=== PATIENT | female | born 1950 | race Hispanic/Latino ===

== ENCOUNTER 2020-01-21 14:05 | Outpatient (CLI) | payer MEDICARE, OTHER | END 2020-01-21 14:06 | disposition home or self-care (01) | LOC: SPVIMAG 14:05 | PROVIDERS: ATTEND Surgery | DX: C50.412 Malignant neoplasm of upper-outer quadrant of left female breast (principal) | CPT/HCPCS: A9575; C8908; 77049 ==

== ENCOUNTER 2020-02-04 13:16 | Outpatient (CLI) | payer MEDICARE, OTHER ==
--- NOTE | 2020-02-04 14:40 | Ultrasound Report ---
ULTRASOUND BREAST LEFT LIMITED, 02/04/2020 CLINICAL INFORMATION / INDICATION: MALIGNANT NEOPLASM OF UPPER OUTER QUAD OF LT BREAST. On recent agus ast MRI, questionable left axillary adenopathy was described. TECHNIQUE: Targeted ultrasound evaluation was performed of the area of interest. The focus of the ajay luation was the left axilla COMPARISON: Recent MRI, 01/21/2020 FINDINGS: Sonographic evaluation of the left axilla shows cluster of lymph nodes in the axilla. The largest lym ph node, which measures approximately 2.8 cm in length demonstrated borderline cortical thickening of 3-4 mm. Due to this finding, we proceeded with axillary lymph node biopsy. IMPRESSION: Borderline left axillary adenopathy. Due to the patient's history of left breast cancer, we decided to proceed with left axillary lymph node biopsy. Follow up recommendation: Ultrasound-guided biopsy BI-RADS Category 4: Suspicious for Malignancy. ULTRASOUND GUIDED left axillary BIOPSY, 02/04/2020 CLINICAL INFORMATION / INDICATION: MALIGNANT NEOPLASM OF UPPER OUTER QUAD OF LT BREAST. COMPARISON: Axillary ultrasound performed earlier today as well as recent bilateral breast MRI exam PROCEDURE: Risks, benefits, and indications to the procedure were discussed with the patient in detail, includin g bleeding, infection, hematoma formation, and inadequate tissue sampling. The patient agreed to proc eed with both verbal and written consent. A timeout procedure was performed with two patient identifi ers. The breast was prepped and draped in the usual sterile fashion. Lidocaine 1% with and without epineph rine were used for local anesthesia. Under direct ultrasound guidance, multiple core samples were obt ained of the questionable abnormal lymph node in the left axilla. A biopsy marker was then placed. B iopsy device was removed and hemostasis achieved with manual pressure. A sterile dressing was applied to the skin. The patient tolerated the procedure without difficulty. No complications were encountered. Postbiopsy instructions were discussed with the patient and given in writing. Specimens were sent to pathology. IMPRESSION: 1. Technically successful ultrasound guided left axillary lymph node biopsy. Biopsy results are pending and will be reported in an addendum. A normal or "negative" report should not preclude biopsy or follow-up of a clinically suspicious find ing. Signer Name: Araceli Nicholas MD Signed: 02/04/2020 2:35 PM Workstation Name: [id number]
== END 2020-02-04 13:17 | disposition home or self-care (01) ==
LOC: SPVWC 13:16
PROVIDERS: ATTEND Surgery
DX: R59.1 Generalized enlarged lymph nodes (principal); C50.412 Malignant neoplasm of upper-outer quadrant of left female breast
CPT/HCPCS: 38505; 76942; 88305

== ENCOUNTER 2020-03-24 08:26 | Observation (INO) | payer MEDICARE, OTHER ==
--- NOTE | 2020-03-17 10:28 | Anesthesia Consultation ---
Anesthesia Consult and Med Hx Date of service: 03/24/20 - Airway Anesthetic Teeth Evaluation: Good, Crowns ROM Head & Neck: Adequate Mental/Hyoid Distance: Adequate Mallampati Class: Class II Intubation Access Assessment: Good - Pre-Operative Health Status ASA Pre-Surgery Classification: ASA2 Proposed Anesthetic Plan: General Nerve Block: PECS/ES - Pulmonary Hx Smoking: No Hx Respiratory Symptoms: No (+2FS) - Cardiovascular System Hx Hypertension: No - Central Nervous System Hx Psychiatric Problems: No - Gastrointestinal Hx Gastroesophageal Reflux Disease: No - Endocrine Hx Renal Disease: No Hx Liver Disease: No Hx Non-Insulin Dependent Diabetes: No Hx Thyroid Disease: No - Other Systems Hx Alcohol Use: Yes (Occas) Hx Cancer: Yes - Additional Comments Anesthesia Medical History Comments: Reported medical clearance from [id number]
[~2020-03-24 08:26] MED LIST: ACETAMINOPHEN 325 MG TAB PO SCH; CELECOXIB 200 MG CAP PO NR; GABAPENTIN 500 MG/10 ML ORAL LIQD PO NR; LACTATED RINGERS 1,000 ML IV SCH; MAGNESIUM OXIDE 400 MG TAB PO SCH; MIDAZOLAM 2 MG/2 ML INJ IV NR; ceFAZolin/Water 2 GM/20 ML 2 GM/20 ML SYRINGE IV NR; fentaNYL 100 MCG/2 ML INJ IV SCH
[2020-03-24] MEDS ORDERED: BUPIVACAINE-EPINEPHRINE/PF 0.5%-1:200,000 (30 ML) VIAL INFILTRATI ONE (09:29)
[2020-03-24] MEDS ORDERED: dexAMETHasone 4 MG/ML VIAL ONE (09:29)
[2020-03-24] MEDS ORDERED: ONDANSETRON 4 MG/2 ML INJ IV PRN ×2 (09:36→16:00)
[2020-03-24] MEDS ORDERED: fentaNYL 100 MCG/2 ML INJ IV PRN (09:36)
--- NOTE | 2020-03-24 09:36 | Anesthesia Day of Surgery ---
Anesthesia Day of Surgery - Day of Surgery Patient Examined: Yes Patient H&P Reviewed: Yes Patient is NPO: Yes
[2020-03-24] MEDS ORDERED: SUCCINYLCHOLINE CHLORIDE 200 MG/10 ML INJ MDV ONE (11:11)
[2020-03-24] MEDS ORDERED: fentaNYL 100 MCG/2 ML INJ ONE (11:11)
[2020-03-24] MEDS ORDERED: GLYCOPYRROLATE 0.4 MG/2 ML INJ ONE (11:11)
[2020-03-24] MEDS ORDERED: ROCURONIUM 50 MG/5 ML INJ IV ONE (11:11)
[2020-03-24] MEDS ORDERED: NEOSTIGMINE 10MG/10 ML INJ MDV ONE (11:11)
[2020-03-24] MEDS ORDERED: PHENYLEPHRINE/NS 1,000 MCG/10 ML SYRINGE (OR USE) IV ONE (11:11)
[2020-03-24] MEDS ORDERED: dexAMETHasone 20 MG/5 ML VIAL ONE (11:11)
[2020-03-24] MEDS ORDERED: ONDANSETRON 4 MG/2 ML INJ ONE (11:11)
[2020-03-24] MEDS ORDERED: LIDOCAINE MPF (2%) 20 MG/1 ML VIAL 5 ML ONE (11:11)
[2020-03-24] MEDS ORDERED: propofoL 200 MG/20 ML VIAL IV ONE (11:12)
[2020-03-24] MEDS ORDERED: GENTAMICIN 40 MG/ML VIAL 2 ML ONE (12:05)
[2020-03-24] MEDS ORDERED: ceFAZolin 1 GM VIAL ONE (12:05)
[2020-03-24] MEDS ORDERED: BACITRACIN 50,000 UNIT VIAL ONE (12:06)
[2020-03-24] MEDS ORDERED: BACITRACIN 50,000 UNIT VIAL IR ONE (12:20)
[2020-03-24] MEDS ORDERED: WATER FOR IRRIG STERILE 1,500 ML BOTTLE IR ONE (12:20)
[2020-03-24] MEDS ORDERED: GENTAMICIN 40 MG/ML VIAL 2 ML IV ONE (12:21)
[2020-03-24] MEDS ORDERED: ceFAZolin 1 GM VIAL IV ONE (12:21)
[2020-03-24] MEDS ORDERED: METHYLENE BLUE 50 MG/10 ML AMP ONE (13:49)
[2020-03-24] MEDS ORDERED: SODIUM CHLORIDE P/F VIAL 10 ML 20 ML ONE (13:49)
[2020-03-24] MEDS ORDERED: SODIUM CHLORIDE 0.45% 1000 ML 1,000 ML IV ONE (13:49)
--- NOTE | 2020-03-24 15:16 | Short Stay Summary ---
Short Stay Documentation Date of service: 03/24/20 - History H&P: obtained from office - Allergies and Medications Current Medications: Allergies No Known Allergies Allergy (Unverified 03/12/20 11:27) Home Medications Medication Instructions Recorded Confirmed Last Taken Type Multivitamin [Daily Multiple 1 each PO DAILY 03/12/20 03/24/20 03/16/20 08:00 History Vitamin] Rosuvastatin (Nf) [Crestor] 5 mg PO QHS 03/12/20 03/24/20 03/22/20 08:00 History Active Medications Acetaminophen (Acetaminophen 325 Mg Tab) 650 mg PO ONCE ROHITH Stop: 03/24/20 21:00 Last Admin: 03/24/20 09:15 Dose: 650 mg Documented by: Acetaminophen (Acetaminophen 325 Mg Tab) 650 mg PO Q6H PRN PRN Reason: Pain MILD(1-3)/Fever >100.5/NORMAN Celecoxib (Celecoxib 200 Mg Cap) 200 mg PO PREOP NR Stop: 03/24/20 21:00 Last Admin: 03/24/20 09:15 Dose: 200 mg Documented by: Diphenhydramine HCl (Diphenhydramine 25 Mg Cap) 25 mg PO Q8H PRN PRN Reason: Itching Docusate Sodium (Docusate Sodium 100 Mg Cap) 100 mg PO BID ROHITH Fentanyl (Fentanyl 100 Mcg/2 Ml Inj) 100 mcg IV ONCE ROHITH Stop: 03/24/20 21:00 Last Admin: 03/24/20 10:19 Dose: 100 mcg Documented by: Fentanyl (Fentanyl 100 Mcg/2 Ml Inj) 50 mcg IV Q5MIN PRN PRN Reason: Pain , Severe (7-10) Stop: 03/24/20 23:00 Gabapentin (Gabapentin 500 Mg/10 Ml Oral Liqd) 150 mg PO PREOP NR Stop: 03/24/20 21:00 Last Admin: 03/24/20 09:15 Dose: 150 mg Documented by: Hydromorphone HCl (Hydromorphone 2 Mg Tab) 2 mg PO Q6H PRN PRN Reason: Pain , Severe (7-10) Cefazolin Sodium (Ancef/Sterile Water 2 Gm/20 Ml) 2 gm in 20 mls @ 80 mls/hr IV PREOP NR; Protocol Stop: 03/24/20 20:00 Lactated Ringer's (Lactated Ringers) 1,000 mls @ 125 mls/hr IV DIRECT ROHITH Last Admin: 03/24/20 09:20 Dose: 125 mls/hr Documented by: Lactated Ringer's (Lactated Ringers) 1,000 mls @ 125 mls/hr IV DIRECT ROHITH Magnesium Oxide (Magnesium Oxide 400 Mg Tab) 400 mg PO ONCE ROHITH Stop: 03/24/20 21:00 Last Admin: 03/24/20 09:15 Dose: 400 mg Documented by: Metoclopramide HCl (Metoclopramide 10 Mg Tab) 10 mg PO Q6H PRN PRN Reason: Nausea And Vomiting Midazolam HCl (Midazolam 2 Mg/2 Ml Inj) 2 mg IV PREOP NR Stop: 03/24/20 23:59 Last Admin: 03/24/20 10:19 Dose: 2 mg Documented by: Morphine Sulfate (Morphine 2 Mg/1 Ml Inj) 2 mg IV Q4H PRN PRN Reason: Pain, Moderate (4-6) Ondansetron HCl (Ondansetron 4 Mg/2 Ml Inj) 4 mg IV Q8H PRN PRN Reason: N/V unrelieved by Reglan Oxycodone/Acetaminophen (Oxycodone /Acetaminophen 5-325mg Tab) 1 tab PO Q6H PRN PRN Reason: Pain, Moderate (4-6) Sodium Chloride (Sodium Chloride 0.9% 10 Ml Flush Syringe) 10 ml IV PRN PRN PRN Reason: LINE FLUSH - Brief post op/procedure progress note Date of procedure: 03/24/20 Pre-op diagnosis: Left breast cancer upper outer quadrant Post-op diagnosis: same Procedure: Left modified radical mastectomy Anesthesia: GETA Findings: Left mastectomy with 2 clips present; left axillary lymph node dissection with reactive tissue and palpable axillary lymph node Surgeon: ALBARO VARMA Estimated blood loss: 50-100ml Pathology: list (left modified radical mastectomy) Specimen disposition: to lab Condition: stable - Disposition Condition at discharge: Good Disposition: DC/TX-02 SHRT-TRM GEN HOSP IP Short Stay Discharge Plan Activity: other (no heavy lifting) Diet: regular Wound: keep clean and dry Follow up with: ALBARO VARMA MD [Staff Physician] - 7 Days DIRK MEYER JR, MD [Staff Physician] - 7 Days
--- NOTE | 2020-03-24 15:33 | Operative Report ---
Operative Report Operative Report: Operative Report: Date of Service: March 24, 2020 Preoperative diagnosis: Multicentric left breast cancer of the upper outer quadrant Postoperative diagnosis: Same Procedure: Left total mastectomy with ALND-left modified radical mastectomy Surgeon: Lisy Hickman M.D. Window Trimmer Apprentice: Lonny Curry M.D. Anesthesia: Gen. Findings: Left breast clips x2 present within left total mastectomy; left axillary lymph node dissection with bulky left axillary lymphadenpathy Complications: None Drains: PATEL drains placed by plastic surgery Estimated blood loss: 100 cc Disposition: Plastic surgery proceeded with left tissue communications tower climber placement Indications for operative procedure: This is a 69-year-old lady with stage II left breast cancer of the upper outer quadrant, [id number] ER/MD positive. Recommendations were to proceed with an ALND given positive axillary swati metastasis; given high ER/MD positivity recommendations were to proceed with an ALND given probable poor response to neoadjuvant chemotherapy. She has met with radiation oncology and medical oncology and understands the role of possible adjuvant chemoradiation therapy pending pathology. Patient with multicentric left breast cancer and recommendations were to proceed with a left total mastectomy, patient wished to proceed with a left mastectomy as well. She wished to proceed with immediate left tissue communications tower climber placement. She wished to proceed with the above procedure. Procedure in detail: The patient was taken to the operating room and was placed supine. Gen. anesthesia was administered. Patient with known malignancy left breast 2:00 and 3:00 positions. Bilateral chest and axillas were prepped and draped in the normal sterile operative fashion. Timeout was performed. Typical mastectomy incision markings were made and encompassing known area of malignancy. Ultrasound used as well to anny area of known left axillary swati metastasis and location of known malignancy. Attention was taken towards the left breast. Skin markings were made to include the area of known cancer. A skin incision was made with a 10 blade knife and dissection taken down to the subcutaneous tissues. First began raising of the superior flap to the level of the clavicle superiorly and posteriorly to the pectoralis muscle. Followed by raising of the medial flap to the level of the sternum and posteriorly to the pectoralis muscle. Followed by raising of the lateral flap to the level of the latissimus dorsi muscle and taken down posteriorly. Then proceeded with raising of the inferior flap to the level of the inframammary fold taken posterior to the pectoralis muscle. The mastectomy/breast was removed from the pectoralis muscle without incident. The specimen was appropriately marked and sent to radiology with findings of breast clips x2 present and sent to pathology. Attention was then taken towards the left axilla. First began opening of the axillary fascia. The lattismus dorsi muscle was identified and followed superiorly. Then proceeded with identification of the axillary vein followed by identification of the thoracodorsal bundle and long thoracic nerve. Axillary lymph nodes were then removed from the above boundaries with the aid of the bovie cautery in a sweeping-like motion and then sent to pathology. Axillary lymph nodes from level I and II were removed. Both nerves were identified and unharmed. Bulky axillary lymphadenopathy was noted. Hemostasis was noted. The chest wall was irrigated and suctioned. Hemostasis was obtained. Plastic surgery then proceeded with placement of left tissue communications tower climber.
[2020-03-24] MEDS ORDERED: MORPHINE 2 MG/1 ML INJ IV PRN (16:00)
[2020-03-24] MEDS ORDERED: ACETAMINOPHEN 325 MG TAB PO PRN (16:00)
[2020-03-24] MEDS ORDERED: LACTATED RINGERS 1,000 ML IV SCH (16:00)
[2020-03-24] MEDS ORDERED: METOCLOPRAMIDE 10 MG TAB PO PRN (16:00)
[2020-03-24] MEDS ORDERED: diphenhydrAMINE 25 MG CAP PO PRN (16:00)
[2020-03-24] MEDS ORDERED: LACTATED RINGERS 1,000 ML ONE (16:18)
--- NOTE | 2020-03-24 16:44 | Operative Report ---
PREOPERATIVE DIAGNOSIS: Left breast cancer. POSTOPERATIVE DIAGNOSIS: Left breast cancer. PROCEDURES: 1. Immediate left breast reconstruction with Allergan Natrelle 133MV 400 mL tissue center receptionist. 2. Placement of MTF FlexHD acellular dermal matrix. SURGEON: Dr. Miles Ayala. ASSEMBLY ASSOCIATE: Dr. Curry. ANESTHESIA: General endotracheal tube anesthesia. DRAINS: PATEL x 3. SPECIMENS: None. COMPLICATIONS: None. ESTIMATED BLOOD LOSS: 25 mL. INDICATIONS: The patient is a 69-year-old woman who presents with left-sided breast cancer, wishing to pursue bilateral breast reconstruction. After discussing options, we decided to proceed with a left-sided tissue center receptionist and placement of ADM. She understands the staged nature of the procedure and the need for subsequent exchange of the tissue center receptionist for an implant. Ancillary procedures, such as nipple flap reconstruction and/or nipple areolar tattooing was also discussed. Nature of the surgery, technical aspects, typical recovery period, and potential risks were discussed fully including but not limited to postop bleeding, infection, pronounced scarring, hematoma or seroma formation, areas of paresthesias or numbness or pain, which may be permanent, asymmetry (expected), capsular contracture, implant leak, rupture, failure, exposure, need for revision or removal, delayed healing, and need for additional surgery. DESCRIPTION OF PROCEDURE: The patient was already anesthetized, prepped and draped. Dr. Hickman had just completed the left-sided mastectomy and axillary node dissection. The flaps were inspected and deemed of adequate thickness and viability to proceed. The inferior border of the pectoralis major muscle was divided with an electrocautery device. Then, a subpectoral pocket developed under direct vision. Next, a triply washed segment of MTF FlexHD medium thickness contoured perforated 11 x 20 cm sheet of ADM was placed and trimmed to the appropriate size, oriented and sewn to the inframammary fold portion of the chest wall with interrupted 0 PDS sutures. Along the superior edge of the ADM, a series of 0 Vicryl interrupted sutures were placed approximating it to the inferior edge of the pectoralis major muscle. The pocket was then irrigated with copious amounts of triple antibiotic solution. The axillary compartment was then compartmentalized from the breast compartment with placement of a series of 0 Vicryl sutures laterally. In the process, a 7 mm flat PATLE drain was placed into the axillary dissection plane exiting through a separate inferolateral stab incision and sewn in place with 2-0 silk. A deep #19 Tony drain was then placed below the ADM and pectoralis major muscle, and a superficial 7 mm PATEL drain was placed superficial to the ADM both exiting through separate inferolateral stab incisions and sewn in place with 2-0 silk. An Nexgencean Natrelle 133MV 400 mL tissue center receptionist was deflated of all air and then placed beneath the ADM and pectoralis major muscle, completely. The blue tabs were sewn down to the chest wall. The skin flap edges were then trimmed to healthy bleeding skin edges and closure was facilitated with a running 2-0 Vicryl suture at the level of the subcutaneous tissue, 3-0 Monocryl at the level of the deep dermis in an interrupted fashion, and running 4-0 Monocryl suture and then Dermabond skin glue. Utilizing closed sterile technique, 120 mL of sterile saline was instilled into the tissue center receptionist. There was no undue tension on the skin flaps, which appeared healthy and viable at the termination of the case. The patient tolerated the procedure well and was extubated and transferred to the recovery area in stable condition. JOB# [id number] /ANGELA
--- NOTE | 2020-03-24 16:46 | Mammography Report ---
BREAST SPECIMEN RADIOGRAPH HISTORY: Left breast surgery FINDINGS/IMPRESSION: The submitted radiograph or radiographs demonstrate(s) the presence of 2 biopsy clips which are cente red in an area of an irregular soft tissue density with spiculation. No localization wire is present. Signer Name: Araceli Nicholas MD Signed: 03/24/2020 4:42 PM Workstation Name: [id number]
[2020-03-24] MEDS ORDERED: MEPERIDINE 25 MG/1 ML INJ IV PRN (17:00)
[2020-03-24] MEDS ORDERED: MEPERIDINE 25 MG/1 ML INJ ONE (17:06)
--- NOTE | 2020-03-24 17:27 | Post Anesthesia Evaluation ---
- Post Anesthesia Evaluation Patient Participated: Yes Airway Patent: Yes Stable Respiratory Function: Yes Nausea/Vomiting: No Temp > 96.8F: Yes Pain Manageable: Yes Adequeate Hydration: Yes Anesthesia Complications: No Block Receding Appropriately: Yes (block for post op analgesia)
[2020-03-24] MEDS: HYDROmorphone 2 MG TAB PO PRN (21:03)
[2020-03-24] MEDS ORDERED: DOCUSATE SODIUM 100 MG CAP PO SCH (22:00)
--- NOTE | 2020-03-24 22:54 | Operative Report ---
PREOPERATIVE DIAGNOSIS: Left breast cancer. POSTOPERATIVE DIAGNOSIS: Left breast cancer. PROCEDURES: 1. Immediate left breast reconstruction with an Allergan Natrelle 400 mL tissue prosthetics lab technician. 2. Placement of MTF FlexHD perforated contour 11 x 20 cm acellular dermal matrix. SURGEON: Dr. Miles Ayala. EX ASSISTANT/PROGRAM DIRECTOR: Dr. Curry. BLOOD LOSS: 25 mL. DRAINS: PATEL x 3. SPECIMENS: None. COMPLICATIONS: None. INDICATIONS: The patient is a 69-year-old woman who presents with known left-sided breast cancer. Dr. Hickman had performed a left breast axillary node dissection and I discussed with the patient an immediate reconstructive effort as an option including the use of tissue expanders and acellular dermal matrix. Other options were discussed and this was deemed the most reasonable one for her needs. Nature of the surgery, technical aspects, typical recovery period and potential risks involved were discussed fully including but not limited to postoperative bleeding, infection, pronounced scarring, hematoma, seroma formation, areas of paresthesias or numbness may be permanent, postoperative pain, asymmetry (expected), failed to achieve our anticipated goals, capsular contracture, delayed healing, implant exposure, need for removal or replacement or subsequent surgery or revision. She understands the staged nature of the procedure and the need for subsequent replacement of the tissue prosthetics lab technician for an implant as well as ancillary potential procedures such as nipple reconstruction and/or tattooing. DESCRIPTION OF PROCEDURE: The patient was already anesthetized, prepped and draped. Dr. Hickman completed her mastectomy and left-sided axillary node dissection. The flaps were inspected and deemed of thickness and viability to proceed. A subpectoral pocket was developed under direct vision by incising the inferior border of the pectoralis major muscle and developing a tissue plane along the chest superiorly. The axillary dissection pocket was closed off with several interrupted 0 Vicryl sutures laterally to compartmentalize the breast compartment from the axillary compartment. In the process, a 7 mm flat PATEL drain was placed into the axillary space exiting through a separate inferior lateral stab incision and sewn in place with a 2-0 silk stitch. Next, a triply-washed antibiotic solution, a segment of MTF FlexHD medium contoured thickness perforated 11 x 20 cm ADM was trimmed in the appropriate size and ____ after orienting the material. It was sewn to the inferior border of the chest wall at the inframammary fold with interrupted 0 PDS. The superior edge was sewn to the inferior edge of the pectoralis major muscle with a series of interrupted 0 Vicryl sutures. A deflated and antibiotic washed 400 mL Intellioan Natrelle 133MV tissue prosthetics lab technician was deflated completely of air ____ into the subpectoral and sub-ADM pocket. The blue tabs were sewn to the anterior chest wall with interrupted 0 Vicryl sutures. A deep #19 Tony drain was placed into the subpectoral pocket exiting through separate inferolateral incision likewise and sewn in place with 2-0 silk suture. A superficial 7 mm flat PATEL drain was placed above the ADM at the inframammary fold and likewise sewn in with 2-0 silk at the inferolateral aspect of the chest wall. Pocket was irrigated with copious amounts of triple antibiotic solution containing Ancef, gentamicin and bacitracin. Next, closure was facilitated with a running 2-0 Vicryl for subcutaneous tissue plane. The skin flap edges were trimmed back to healthy bleeding skin edges and sewn together with 3-0 Monocryl at the level of the deep dermis in an interrupted fashion. The skin was reapproximated at the subcuticular tissue plane with a running 4-0 Monocryl stitch and then Dermabond skin glue was placed. ____ were placed over the 3 exiting PATEL sites utilizing a closed sterile technique, 120 mL of saline solution was instilled into the tissue prosthetics lab technician. There was no undue tension on the skin flaps. JOB# [id number] /ANGELA
[2020-03-25] MEDS: oxyCODONE /ACETAMINOPHEN 5-325MG TAB PO PRN ×2 (00:30→07:52)
[2020-03-25] MEDS: HYDROmorphone 2 MG TAB PO PRN (05:44)
[2020-03-25 07:58] VITALS: BP 109/57
--- NOTE | 2020-03-25 08:20 | Progress Note ---
Assessment and Plan This is a 69 year old lady POD#1 left modified radical mastectomy and left tissue stock feeder placement for Stage II left breast cancer. 1. No acute events overnight. 2. Left chest incision healing well, skin well perfused. 3. PATEL drain education. 4. OOB hallway. 5. D/C planning today. Subjective Date of service: 03/25/20 Principal diagnosis: Stage II left breast cancer upper outer quadrant Interval history: This is a 69 year old lady POD#1 left modified radical mastectomy and left tissue stock feeder placement for Stage II left breast cancer Objective - Constitutional Vitals: Vital Signs - 12hr 03/24/20 03/24/20 03/25/20 20:20 22:03 00:46 Temperature 98.4 F 98.6 F Pulse Rate 95 H 84 Respiratory 20 20 18 Rate Blood Pressure 120/69 110/59 O2 Sat by Pulse 97 94 Oximetry 03/25/20 03/25/20 03/25/20 05:26 07:23 07:52 Temperature 98.3 F 98.1 F Pulse Rate 75 76 Respiratory 14 16 18 Rate Blood Pressure 102/52 109/57 O2 Sat by Pulse 96 94 Oximetry General appearance: Present: no acute distress - EENT Eyes: PERRL, EOM intact ENT: hearing intact, clear oral mucosa, dentition normal Ears: bilateral: normal - Neck Neck: supple - Respiratory Respiratory effort: normal - Breasts Breasts: other (left chest incision c/d/i; no hematoma, skin well perfused; PATEL drains with appr output) - Cardiovascular Rhythm: regular Extremities: no ischemia, pulses intact, pulses symmetrical, No edema, normal temperature, normal color, Full ROM - Gastrointestinal General gastrointestinal: Present: soft, non-tender, non-distended - Genitourinary Female genitourinary: deferred - Integumentary Integumentary: clear, warm, dry - Musculoskeletal Musculoskeletal: strength equal bilaterally - Neurologic Neurologic: CNII-XII intact, moves all extremities - Psychiatric Psychiatric: appropriate mood/affect, intact judgment & insight, memory intact, cooperative Medications & Allergies - Medications Allergies/Adverse Reactions: Allergies No Known Allergies Allergy (Unverified 03/12/20 11:27) Home Medications: Home Medications Medication Instructions Recorded Confirmed Last Taken Type Multivitamin [Daily Multiple 1 each PO DAILY 03/12/20 03/24/20 03/16/20 08:00 History Vitamin] Rosuvastatin (Nf) [Crestor] 5 mg PO QHS 03/12/20 03/24/20 03/22/20 08:00 History Active Medications: Generic Name Dose Route Start Last Admin Trade Name Freq PRN Reason Stop Dose Admin Acetaminophen 650 mg 03/24/20 16:00 Acetaminophen 325 Mg Tab PO Q6H PRN Pain MILD(1-3)/Fever >100.5/NORMAN Cyclobenzaprine HCl 5 mg 03/25/20 08:16 Cyclobenzaprine 10 Mg Tab PO Q8H PRN Muscle Spasm Diphenhydramine HCl 25 mg 03/24/20 16:00 Diphenhydramine 25 Mg Cap PO Q8H PRN Itching Docusate Sodium 100 mg 03/24/20 22:00 03/24/20 21:03 Docusate Sodium 100 Mg Cap PO 100 mg BID ROHITH Administration Hydromorphone HCl 2 mg 03/24/20 16:00 03/25/20 05:44 Hydromorphone 2 Mg Tab PO 2 mg Q6H PRN Administration Pain , Severe (7-10) Lactated Ringer's 1,000 mls @ 125 mls/hr 03/24/20 16:00 Lactated Ringers IV DIRECT ROHITH Metoclopramide HCl 10 mg 03/24/20 16:00 Metoclopramide 10 Mg Tab PO Q6H PRN Nausea And Vomiting Morphine Sulfate 2 mg 03/24/20 16:00 Morphine 2 Mg/1 Ml Inj IV Q4H PRN Pain, Moderate (4-6) Ondansetron HCl 4 mg 03/24/20 16:00 Ondansetron 4 Mg/2 Ml Inj IV Q8H PRN Nausea And Vomiting Oxycodone/Acetaminophen 1 tab 03/24/20 16:00 03/25/20 07:52 Oxycodone /Acetaminophen 5-325mg Tab PO 1 tab Q6H PRN Administration Pain, Moderate (4-6) Sodium Chloride 10 ml 03/24/20 16:00 Sodium Chloride 0.9% 10 Ml Flush Syringe IV PRN PRN LINE FLUSH
[2020-03-25] MEDS ORDERED: CYCLOBENZAPRINE 10 MG TAB PO PRN (09:00)
== END 2020-03-25 11:07 | disposition home or self-care (01) ==
LOC: OR 08:26 → OB 15:08
PROVIDERS: ADMIT Surgery; ATTEND Surgery
DX: C50.412 Malignant neoplasm of upper-outer quadrant of left female breast (principal); Z20.822 Contact with and (suspected) exposure to COVID-19
CPT/HCPCS: 15777; 19307; 19357; 64450; 76098; 88307; 88309; 96374; C1789; G0378; J0330; J0690; J1100; J1580; J2175; J2250; J2370; J2704; J2710; J3010; J7030; J7120; Q4128; Q9968; U0003; J2405

== ENCOUNTER 2020-05-26 11:20 | Observation (INO) | payer MEDICARE, OTHER ==
[~2020-05-26 11:20] MED LIST changes: -ACETAMINOPHEN 325 MG TAB PO SCH; -CELECOXIB 200 MG CAP PO NR; -GABAPENTIN 500 MG/10 ML ORAL LIQD PO NR; -LACTATED RINGERS 1,000 ML IV SCH; -MAGNESIUM OXIDE 400 MG TAB PO SCH; -MIDAZOLAM 2 MG/2 ML INJ IV NR; -fentaNYL 100 MCG/2 ML INJ IV SCH
--- NOTE | 2020-05-26 13:10 | Anesthesia Day of Surgery ---
Anesthesia Day of Surgery - Day of Surgery Patient Examined: Yes Patient H&P Reviewed: Yes Patient is NPO: Yes
[2020-05-26] MEDS ORDERED: MAGNESIUM OXIDE 400 MG TAB PO NR (13:11)
[2020-05-26] MEDS ORDERED: fentaNYL 100 MCG/2 ML INJ IV ONE (13:11)
[2020-05-26] MEDS ORDERED: ONDANSETRON 4 MG/2 ML INJ IV PRN ×2 (13:11→17:15)
[2020-05-26] MEDS ORDERED: ACETAMINOPHEN 325 MG TAB PO NR (13:11)
[2020-05-26] MEDS ORDERED: HYDROmorphone 1 MG/1 ML INJ IV PRN ×2 (13:11)
--- NOTE | 2020-05-26 13:11 | Anesthesia Consultation ---
Anesthesia Consult and Med Hx - Airway Anesthetic Teeth Evaluation: Good, Crowns (Implants) ROM Head & Neck: Adequate Mental/Hyoid Distance: Adequate Mallampati Class: Class II Intubation Access Assessment: Good - Pre-Operative Health Status ASA Pre-Surgery Classification: ASA2 Proposed Anesthetic Plan: General Nerve Block: ES - Pulmonary Hx Respiratory Symptoms: No (+2FS) - Central Nervous System Hx Psychiatric Problems: No - Gastrointestinal Hx Gastroesophageal Reflux Disease: No - Endocrine Hx Non-Insulin Dependent Diabetes: No Hx Thyroid Disease: No - Other Systems Hx Alcohol Use: Yes (Occas) Hx Cancer: Yes - Additional Comments Anesthesia Medical History Comments: Was here [id number]
[2020-05-26] MEDS ORDERED: BUPIVACAINE/PF (0.25%) 2.5 MG/ML 30 ML VIAL INFILTRATI ONE ×2 (13:37)
[2020-05-26] MEDS ORDERED: dexAMETHasone 4 MG/ML VIAL ONE (13:38)
[2020-05-26] MEDS: LACTATED RINGERS 1,000 ML IV SCH ×2 (13:40→21:46)
[2020-05-26] MEDS ORDERED: MIDAZOLAM 2 MG/2 ML INJ IV NR (14:00)
[2020-05-26] MEDS ORDERED: CELECOXIB 200 MG CAP PO NR (14:00)
[2020-05-26] MEDS ORDERED: propofoL 200 MG/20 ML VIAL IV ONE (14:05)
[2020-05-26] MEDS ORDERED: LIDOCAINE MPF (2%) 20 MG/1 ML VIAL 5 ML ONE (14:05)
[2020-05-26] MEDS ORDERED: HYDROmorphone 1 MG/1 ML INJ ONE (14:05)
[2020-05-26] MEDS ORDERED: ROCURONIUM 50 MG/5 ML INJ IV ONE (14:05)
[2020-05-26] MEDS ORDERED: GENTAMICIN 40 MG/ML VIAL 2 ML ONE (14:08)
[2020-05-26] MEDS ORDERED: ceFAZolin 1 GM VIAL ONE (14:08)
[2020-05-26] MEDS ORDERED: BACITRACIN 50,000 UNIT VIAL ONE (14:08)
[2020-05-26] MEDS ORDERED: SODIUM CHLORIDE P/F VIAL 10 ML 0 ML ONE (14:09)
[2020-05-26] MEDS ORDERED: PHENYLEPHRINE/NS 1,000 MCG/10 ML SYRINGE (OR USE) IV ONE (14:48)
[2020-05-26] MEDS ORDERED: LIDOCAINE 1%/EPINEPHRINE 1:100,000 VIAL (20 ML) INFILTRATI ONE ×2 (15:08→15:27)
[2020-05-26] MEDS ORDERED: WATER FOR IRRIG STERILE 1,500 ML BOTTLE IR ONE (15:22)
[2020-05-26] MEDS ORDERED: LACTATED RINGERS 1,000 ML ONE (16:04)
[2020-05-26] MEDS ORDERED: dexAMETHasone 20 MG/5 ML VIAL ONE (17:04)
[2020-05-26] MEDS ORDERED: ONDANSETRON 4 MG/2 ML INJ ONE (17:05)
[2020-05-26] MEDS ORDERED: NEOSTIGMINE 10MG/10 ML INJ MDV ONE (17:06)
[2020-05-26] MEDS ORDERED: GLYCOPYRROLATE 0.4 MG/2 ML INJ ONE (17:06)
[2020-05-26] MEDS ORDERED: METOCLOPRAMIDE 10 MG TAB PO PRN (17:15)
[2020-05-26] MEDS ORDERED: diphenhydrAMINE 25 MG CAP PO PRN (17:15)
[2020-05-26] MEDS ORDERED: HYDROmorphone 2 MG TAB PO PRN (17:15)
[2020-05-26] MEDS ORDERED: oxyCODONE /ACETAMINOPHEN 5-325MG TAB PO PRN (17:15)
[2020-05-26] MEDS ORDERED: LACTATED RINGERS 1,000 ML IV SCH (17:15)
[2020-05-26] MEDS ORDERED: ACETAMINOPHEN 325 MG TAB PO PRN (17:15)
--- NOTE | 2020-05-26 17:15 | Short Stay Summary ---
Short Stay Documentation Date of service: 05/26/20 - History H&P: obtained from office - Allergies and Medications Current Medications: Allergies No Known Allergies Allergy (Unverified 05/12/20 16:54) Home Medications Medication Instructions Recorded Confirmed Last Taken Type Multivitamin [Daily Multiple 1 each PO DAILY 03/12/20 05/12/20 05/25/20 History Vitamin] Rosuvastatin (Nf) [Crestor] 5 mg PO QHS 03/12/20 05/12/20 05/25/20 History Active Medications Acetaminophen (Acetaminophen 325 Mg Tab) 650 mg PO ONCE NR Stop: 05/26/20 23:59 Last Admin: 05/26/20 13:45 Dose: 650 mg Documented by: Celecoxib (Celecoxib 200 Mg Cap) 200 mg PO PREOP NR Stop: 05/26/20 23:59 Last Admin: 05/26/20 13:45 Dose: 200 mg Documented by: Hydromorphone HCl (Hydromorphone 1 Mg/1 Ml Inj) 0.5 mg IV Q10MIN PRN PRN Reason: Pain , Severe (7-10) Stop: 05/26/20 23:59 Hydromorphone HCl (Hydromorphone 1 Mg/1 Ml Inj) 0.25 mg IV Q10MIN PRN PRN Reason: Pain, Moderate (4-6) Stop: 05/26/20 23:59 Cefazolin Sodium (Ancef/Sterile Water 2 Gm/20 Ml) 2 gm in 20 mls @ 80 mls/hr IV PREOP NR; Protocol Stop: 05/26/20 20:00 Lactated Ringer's (Lactated Ringers) 1,000 mls @ 125 mls/hr IV DIRECT ROHITH Last Admin: 05/26/20 13:40 Dose: 125 mls/hr Documented by: Magnesium Oxide (Magnesium Oxide 400 Mg Tab) 400 mg PO ONCE NR Stop: 05/26/20 23:59 Last Admin: 05/26/20 13:45 Dose: 400 mg Documented by: Midazolam HCl (Midazolam 2 Mg/2 Ml Inj) 2 mg IV PREOP NR Stop: 05/26/20 23:59 Last Admin: 05/26/20 13:57 Dose: 2 mg Documented by: Ondansetron HCl (Ondansetron 4 Mg/2 Ml Inj) 4 mg IV ONCE PRN PRN Reason: Nausea And Vomiting - Brief post op/procedure progress note Date of procedure: 05/26/20 Pre-op diagnosis: Left breast cancer Post-op diagnosis: same Procedure: Right total mastectomy Anesthesia: GETA Findings: Right total mastectomy Surgeon: ALBARO VARMA Estimated blood loss: 50-100ml Pathology: list Specimen disposition: to lab Condition: stable - Disposition Condition at discharge: Good Disposition: DC/TX-02 SHRT-TRM GEN HOSP IP Short Stay Discharge Plan Activity: other (no heavy lifting) Diet: regular Wound: keep clean and dry (wear breast binder) Follow up with: ALBARO VARMA MD [Staff Physician] - 7 Days
--- NOTE | 2020-05-26 17:32 | Operative Report ---
Operative Report Operative Report: Operative Report: Date of Service: May 26, 2020 Preoperative diagnosis: Multicentric left breast cancer Postoperative diagnosis: Same Procedure: Right total mastectomy Surgeon: Lisy Hickman M.D. Employee Relations Assistant: Lonny Curry M.D. Anesthesia: Gen. Findings: Right total mastectomy; left tissue child care specialist removal by plastic surgery with excess mastectomy skin flap excision and exploration of left chest with no suspicious findings Complications: None Drains: One 19 [place] PATEL drain Estimated blood loss: Less than 100 cc Disposition: PACU in good condition Indications for operative procedure: This is a 69-year-old lady with multicentric Stage IIA left breast cancer, ILCA [id number] ER/KS positive. She recently underwent a left MRM with immediate left tissue child care specialist placement and findings of multicentric left breast cancer-ILCA and focally positive lower outer margin. Patient wished to proceed with a prophylactic right mastectomy and left tissue child care specialist removal given discomfort; at the time of surgery recommended excess skin excision from left mastectomy to include posterior tissues given positive lower outer quadrant margin. Recommendations from tumor board are for left adjuvant radiation therapy, patient with extensive ILCA to also include ILCA of the subcutaneous fat. She wished to proceed with the above procedure. Procedure in detail: Anesthesia placed bilateral pectoral blocks. The patient was then taken to the operating room and was placed supine. Gen. anesthesia was administered. Bilateral chest and axillas were prepped and draped in the normal sterile operative fashion. Timeout was performed. Typical mastectomy incision marking was made on the right breast. Plastic surgery started simultaneous as well with left tissue child care specialist removal and excision of excess mastectomy skin and posterior tissues. Once left tissue child care specialist was removed, I examined the left chest wall with no suspicious findings, no palpable masses and landmarks noted within the chest wall. Plastic surgery then proceeded with closure. I assisted in marking of the left chest as well. Attention was taken towards the right breast. Typical mastectomy skin incision was made with a 10 blade knife and dissection taken down to the subcutaneous tissues. First began raising of the superior flap to the level of the clavicle superiorly and posteriorly to the pectoralis muscle. Followed by raising of the medial flap to the level of the sternum and posteriorly to the pectoralis muscle. Followed by raising of the lateral flap to the level of the latissimus dorsi muscle and taken down posteriorly. Then proceeded with raising of the inferior flap to the level of the inframammary fold taken posterior to the pectoralis muscle. The mastectomy/breast was removed from the pectoralis muscle without incident. The specimen was appropriately marked and sent to pathology. Hemostasis was obtained. No suspicious chest wall findings present. The chest wall was irrigated and suctioned. Hemostasis was noted. One 19 [place] PATEL drain was placed. The subcutaneous tissues were closed using an interrupted 3-0 Vicryl. The skin was closed using a running 4-0 Monocryl and dermabond. She tolerated surgery very well and she was awaken from anesthesia and transported to PACU in good condition.
--- NOTE | 2020-05-26 19:25 | Post Anesthesia Evaluation ---
- Post Anesthesia Evaluation Patient Participated: Yes Airway Patent: Yes Stable Respiratory Function: Yes Nausea/Vomiting: No Temp > 96.8F: Yes Pain Manageable: Yes Adequeate Hydration: Yes Anesthesia Complications: No Block Receding Appropriately: Yes Patient on Ventilator: No
[2020-05-26] MEDS ORDERED: DOCUSATE SODIUM 100 MG CAP PO SCH (22:00)
--- NOTE | 2020-05-27 04:20 | Operative Report ---
DATE OF SURGERY: 05/26/2020 PREOPERATIVE DIAGNOSIS: Personal history of left breast cancer. POSTOPERATIVE DIAGNOSIS: Personal history of left breast cancer. PROCEDURES: 1. Removal of left tissue hyster machine operator. 2. Complex closure over a drain (16 cm). SURGEON: Miles Ayala MD SALON SUPERVISOR: None. ANESTHESIA: General. DRAINS: PATEL x1. SPECIMENS: Skin sent and oriented to pathology with a single suture at the superior border. ESTIMATED BLOOD LOSS: 10 mL. COMPLICATIONS: None. INDICATIONS: The patient is a 69-year-old woman with positive margins involving the skin aspect of a previous mastectomy. She presents for reexcision of the skin and soft tissue in this area and removal of the tissue hyster machine operator. She is not considering any additional reconstructive efforts on either side at this time. The nature of the surgery, technical aspects, typical recovery period and potential risks involved were discussed fully including but not limited to postop bleeding, infection, pronounced scarring, hematoma or seroma formation, delayed healing, postop pain, paresthesias or numbness, chest deformity, failed to achieve anticipated goals and need for revision or future surgery. DESCRIPTION OF PROCEDURE: The patient was prepped and draped with DuraPrep in the usual sterile fashion. A 20 mL of 1% lidocaine with epinephrine solution was injected as a local anesthetic into the operative field. An excision was designed after complete deflation of the tissue hyster machine operator with an additional excision of a vertical extent of 3.5 cm involving an elliptical pattern skin on the left chest. An incision was made through the skin into the subcutaneous tissue with a 15 blade scalpel. The FlexHD allograft was transected and the pocket entered. The tissue hyster machine operator was removed. The pocket was clean and normal appearing. No masses were identified on inspection. Multiple capsulorrhaphies were performed to promote tension-free closure. The posterior capsule was scored with electrocautery and the superior and inferior flaps were easily mobilized to facilitate a tension-free closure. The pocket was irrigated with copious amounts of saline solution. A 10 flat PATEL drain was placed exiting through a separate inferolateral stab incision and sewn in place with 2-0 silk. [place] thrombin was utilized to coat pocket for hemostatic purposes and then closure commenced with a running 2-0 Vicryl suture reapproximating a well incorporated allograft superiorly and inferiorly. A 3-0 Monocryl was then placed in the deep dermis in interrupted manner and then a running subcuticular 4-0 Monocryl stitch and then Dermabond skin glue. The patient tolerated the procedure well. The procedure continued on the right side with Dr. Hickman performing the right mastectomy. TID: [id number] RECEIPT: [id number] /JASMIN
--- NOTE | 2020-05-27 08:37 | Progress Note ---
Assessment and Plan This is a 69 year old lady with multicentric left breast Stage IIB ILCA, POD#1 left tissue ocean lifeguard removal and right total mastectomy. 1. No acute events overnight. 2. Pain in good control. 3. Bilateral chest incisions c/d/i, skin well perfused. 4. PATEL drain education. 5. D/C planning for today. Subjective Date of service: 05/27/20 Principal diagnosis: Multicentric left breast cancer Interval history: POD#1 left tissue ocean lifeguard removal and right total mastectomy Objective - Constitutional Vitals: Vital Signs - 12hr 05/27/20 05/27/20 05/27/20 00:00 04:47 04:55 Temperature 98.6 F 68.0 F L 98.0 F Pulse Rate 74 74 77 Respiratory 18 18 18 Rate Blood Pressure 98/54 135/69 Blood Pressure 117/78 [Left] O2 Sat by Pulse 99 99 Oximetry General appearance: Present: no acute distress - EENT Eyes: PERRL, EOM intact ENT: hearing intact, clear oral mucosa, dentition normal Ears: bilateral: normal - Neck Neck: supple, normal ROM - Respiratory Respiratory effort: normal - Breasts Breasts: other (ailyn chest incisions c/d/i; no hematoma; skin well perfused; typical post op bruising; PATEL drains to bulb suction) - Cardiovascular Rhythm: regular Extremities: no ischemia, pulses intact, pulses symmetrical, No edema, normal temperature, normal color, Full ROM - Gastrointestinal General gastrointestinal: Present: soft, non-tender, non-distended Rectal Exam: deferred - Genitourinary Female genitourinary: deferred - Integumentary Integumentary: clear, warm, dry - Musculoskeletal Musculoskeletal: strength equal bilaterally - Neurologic Neurologic: CNII-XII intact, moves all extremities - Psychiatric Psychiatric: appropriate mood/affect, intact judgment & insight, memory intact, cooperative Medications & Allergies - Medications Allergies/Adverse Reactions: Allergies No Known Allergies Allergy (Unverified 05/12/20 16:54) Home Medications: Home Medications Medication Instructions Recorded Confirmed Last Taken Type Multivitamin [Daily Multiple 1 each PO DAILY 03/12/20 05/12/20 05/25/20 History Vitamin] Rosuvastatin (Nf) [Crestor] 5 mg PO QHS 03/12/20 05/12/20 05/25/20 History oxyCODONE /ACETAMINOPHEN [Percocet 1 tab PO Q6HR PRN #20 tablet 05/26/20 Unknown Rx 5/325] Active Medications: Generic Name Dose Route Start Last Admin Trade Name Irwin PRN Reason Stop Dose Admin Acetaminophen 650 mg 05/26/20 17:15 Acetaminophen 325 Mg Tab PO Q6H PRN Pain MILD(1-3)/Fever >100.5/NORMAN Diphenhydramine HCl 25 mg 05/26/20 17:15 Diphenhydramine 25 Mg Cap PO Q8H PRN Itching Docusate Sodium 100 mg 05/26/20 22:00 05/26/20 21:46 Docusate Sodium 100 Mg Cap PO 100 mg BID ROHITH Administration Hydromorphone HCl 2 mg 05/26/20 17:15 05/26/20 20:09 Hydromorphone 2 Mg Tab PO 2 mg Q6H PRN Administration Pain , Severe (7-10) Lactated Ringer's 1,000 mls @ 125 mls/hr 05/26/20 13:15 05/26/20 21:46 Lactated Ringers IV 125 mls/hr DIRECT ROHITH Administration Lactated Ringer's 1,000 mls @ 125 mls/hr 05/26/20 17:15 Lactated Ringers IV DIRECT ROHITH Metoclopramide HCl 10 mg 05/26/20 17:15 05/26/20 20:09 Metoclopramide 10 Mg Tab PO 10 mg Q6H PRN Administration Nausea And Vomiting Ondansetron HCl 4 mg 05/26/20 13:11 Ondansetron 4 Mg/2 Ml Inj IV ONCE PRN Nausea And Vomiting Ondansetron HCl 4 mg 05/26/20 17:15 Ondansetron 4 Mg/2 Ml Inj IV Q8H PRN N/V unrelieved by Kellie Oxycodone/Acetaminophen 1 tab 05/26/20 17:15 05/27/20 04:56 Oxycodone /Acetaminophen 5-325mg Tab PO 1 tab Q6H PRN Administration Pain, Moderate (4-6) Sodium Chloride 10 ml 05/26/20 17:15 Sodium Chloride 0.9% 10 Ml Flush Syringe IV PRN PRN LINE FLUSH
[2020-05-27 10:35] VITALS: BP 117/56
== END 2020-05-27 11:15 | disposition home or self-care (01) ==
LOC: OR 11:20 → OB 17:15
PROVIDERS: ADMIT Surgery; ATTEND Surgery
DX: C50.911 Malignant neoplasm of unspecified site of right female breast (principal); Z20.822 Contact with and (suspected) exposure to COVID-19; C50.912 Malignant neoplasm of unspecified site of left female breast
CPT/HCPCS: 11971; 19303; 64450; 88305; 88309; C9250; G0378; J0690; J1100; J1170; J2250; J2370; J2405; J2704; J2710; J3010; J7120; U0003; J1580